=== PATIENT | male | born 1955 | race Caucasian/White ===

== ENCOUNTER → 2023-05-22 12:35 | Outpatient (REF) | payer MEDICARE, OTHER, SELFPAY | LOC: PAVMRI 12:35 | PROVIDERS: ATTENDING PHYSICIAN Specialist; FAMILY PHYSICIAN Family Medicine | DX: M25.511 Pain in right shoulder (principal) | CPT/HCPCS: 73221 ==

== ENCOUNTER → 2024-02-18 07:55 | Outpatient (REF) | payer MEDICARE, OTHER, SELFPAY | LOC: HWRAD 07:55 | PROVIDERS: ATTENDING PHYSICIAN Family Medicine | DX: Z87.891 Personal history of nicotine dependence (principal) | CPT/HCPCS: 71271 ==

== ENCOUNTER 2024-05-08 18:27 | Emergency (ER) | payer MEDICARE, OTHER, SELFPAY ==
[2024-05-08 18:28] VITALS: BP 147/78
--- NOTE | 2024-05-08 20:52 | ED.GENMED ---
History of Present Illness
General
Chief Complaint: Skin Surface Trauma
Source: patient
Exam Limitations: none
Time Seen by Provider: 05/08/24 20:38
Nursing documentation reviewed up to this point in time: agreed with
History of Present Illness
History of Present Illness:
Patient presents to ED secondary to persistent bleeding from accidental cut/avulsion of right index finger via razor blade this afternoon. Denies any other injuries. Patient takes 81 mg aspirin daily.
Review of Systems
Review of Systems
Allergies reviewed?: Yes
All Other Systems: ROS reviewed and negative except as documented in HPI and ROS
Constitutional: Reports no symptoms
Musculoskeletal: Reports no symptoms
Skin: Reports other (Finger laceration)
Neurological: Reports no symptoms
Phy Exam
Physical Exam
Physical Exam:
Physical Exam
General: no apparent distress, not acutely ill. afebrile.
Head: nc/at. eomi
Neuro: alert and oriented x 3. no focal neurological deficits
Skin: right 2nd phalanx: an approx 1cm skin avulsion noted on dorsal surface of distal phalanx without pulsatile bleeding
Psychiatric: well kept. interactive and cooperative
Extremities: no edema. no calf tenderness.
Course
Vital Signs
Initial and Last Documented VS:
Initial Vital Signs
Temp Pulse Resp BP Pulse Ox
99.1 F 76 16 147/78 98
05/08/24 18:28 05/08/24 18:28 05/08/24 18:28 05/08/24 18:28 05/08/24 18:28
Last Documented Vital Signs
Temp Pulse Resp BP Pulse Ox
99.1 F 76 16 147/78 98
05/08/24 18:28 05/08/24 18:28 05/08/24 18:28 05/08/24 18:28 05/08/24 18:28
MDM/Problems Addressed
MDM/Problems Addressed:
Gel form applied along with bulky dressing. Patient will be discharged with stable condition with recommendation to continue wound care at home along with PCP follow-up, as needed.
*Critical Care Note
Total Time (30-74mins, 75-104mins- exclusive of procedures): Not Applicable
ED Attending Note
-
Portions of this chart may have been created with voice recognition software.� Occasional wrong word or��sound alike� substitutions may have occurred due to the inherent limitations of voice recognition software.
Discharge Plan
Departure
Patient Disposition: Home (Routine Discharge)
Date of Disposition: 05/08/24
Time of Disposition: 21:01
Patient with high blood pressure during this ER visit?: Yes
Condition: Good
Discharge Problem:
Avulsion of skin of finger
Instructions: Wound Care (DC), Taking care of cuts, scrapes, and puncture wounds
Referrals:
Mario Rajan, [Family Provider] -
Activity Restrictions/Additional Instructions:
As discussed, please follow-up with your primary care physician with any further concerns.
Interventions
Interventions:
*Nursing Disposition Last Done: 05/08/24 21:30
ED-Skin Assessment Last Done: 05/08/24 21:29
Discharge Date and Time
Discharge Date/Time: 05/08/24 21:33
Print Language: TRINIDADIAN
== END 2024-05-08 21:33 | disposition home or self-care (01) ==
LOC: EMR 18:27
PROVIDERS: EMERGENCY PHYSICIAN Emergency Medicine; FAMILY PHYSICIAN Family Medicine
DX: S61.210A Laceration without foreign body of right index finger without damage to nail, initial encounter (principal); W27.8XXA Contact with other nonpowered hand tool, initial encounter; Z79.82 Long term (current) use of aspirin
CPT/HCPCS: 99282